=== PATIENT | female | born 2000 | race Caucasian/White ===

== ENCOUNTER → 2022-11-13 11:13 | Outpatient (BNVA) | payer MEDICAID, SELFPAY | PROVIDERS: Family Provider Registered Nurse; PCP Registered Nurse; Visit Provider Family Medicine | DX: R30.0 Dysuria (principal); Z34.90 Encounter for supervision of normal pregnancy, unspecified, unspecified trimester | CPT/HCPCS: 80307; 81025; 84144; 84443; 85025; 86762; 86803; 86850; 86900; 87086; 87340; 87491; 87591; 87624; 87806 ==

== ENCOUNTER 2022-11-21 15:11 | Outpatient (CLI) | payer MEDICAID, SELFPAY ==
--- NOTE | 2022-11-21 15:30 | US_ITS ---
WS: [id number] OB ultrasound, 11/21/2022 Clinical Data: Dating US Comparison: None. Findings: There is a single interuterine . heart rate is 164 beats per minute. There is a yolk sac present. The crown-rump length measured 1.6 cm. The estimated gestational age 8w0d is with an SAMAN of approximately 07/03/2023. The cervix was closed and measured 2.26 cm The ovary measured 9.97 x 6.98 x 5.16 cm. The left ovary measured 2.64 cm x 2.54 cm x 1.52 cm. The right ovary measured 2.25 cm x 1.630 cm x 1.28 cm. No ovarian cyst or masses are seen. US/US OB <= 14 weeks fetus [id number] Impression: 1. Single interuterine . 2. Estimated gestational age of 8w0d with an SAMAN of 07/03/2023. 3. heart rate 164 beats per minute.
== END 2022-11-21 15:12 | disposition home or self-care (01) ==
PROVIDERS: PCP Registered Nurse; Visit Provider Family Medicine
DX: Z34.00 Encounter for supervision of normal first pregnancy, unspecified trimester (principal); Z3A.08 8 weeks gestation of pregnancy
CPT/HCPCS: 76801

== ENCOUNTER 2023-02-15 14:44 | Outpatient (CLI) | payer MEDICAID, SELFPAY ==
--- NOTE | 2023-02-15 15:00 | US_ITS ---
WS: [id number] OBSTETRICAL ULTRASOUND COMPLETE HISTORY: Anatomy US COMPARISON: 11/21/2022 this examination is significantly compromised by maternal body habitus. Single intrauterine gestation in Cephalic presentation. Cervix is not imaged. Cervical length has not been evaluated. Normal amount of amniotic fluid surrounds the fetus. Placenta: Posterior. Placenta grade 1 Heart: 138 BPM. Four chambers are identified. No outflow tract is identified. Anatomy: Intracranial structures are negative. spine limited. stomach is normal. Bladder is present. Kidneys are not well visualized. Limited visualization of the abdominal wall and cord ins ertion site. Orientation of the feet with relationship to the lower extremities is not determined. 4 extremities a re noted. profile: Not visualized. Gender: Male. measurements: BPD = 4.7 cm = 20w1d; HC = 18.1 cm = 20w4d; AC = 15.0 cm = 20w2d; FL = 3.5 cm = 21w0d; EFW: 362 g. Biometry is internally concordant. AGA by ultrasound: 20w4d SAMAN by ultrasound: 07/01/2023 US/US OB >= 14 weeks fetus [id number] IMPRESSION: 1. Single intrauterine gestation of 20w4d with an SAMAN of 07/01/2023. Appropria te growth since the first trimester ultrasound. 2. Extremely limited anatomy evaluation. Recommend reevaluation of the cervix and cervical length, spine, cardiac outflow tracts, kidneys, orientation and relationship of the lower extremities to the feet and profile. The re maining anatomy appears appropriate.
== END 2023-02-15 14:45 | disposition home or self-care (01) ==
PROVIDERS: PCP Registered Nurse; Visit Provider Family Medicine
DX: Z34.02 Encounter for supervision of normal first pregnancy, second trimester (principal)
CPT/HCPCS: 76805

== ENCOUNTER 2023-03-15 13:51 | Outpatient (CLI) | payer MEDICAID, SELFPAY ==
--- NOTE | 2023-03-15 14:15 | US_ITS ---
WS: [id number] ULTRASOUND OB FOCUSED HISTORY: Follow up on anatomy US in 1-2 weeks, reevaluate heart, cervix, spine, kidneys and low er extremities, profile. COMPARISON: 02/15/2023 Single intrauterine gestation in cephalic position. Cervix is closed measuring 3.3 cm. Fetus in cepha lic position. heart rate at 147 BPM. Additional imaging the heart demonstrates 4 chambers. Normal position of the valve plane. Outfl ow tracts are normal. I was present during this examination and no abnormality was appreciated. spine is normal. Normal profile. Ankles are crossed causing difficult evaluation of the orientation between the lower extremities and feet. All 4 extremities are present. Normal kidneys. IMPRESSION: Follow-up imaging of anatomy demonstrates no persistent abnormalities. heart and outflow tracts appear normal. ankles are crossed limiting evaluation of the orientation of the lower ex tremities and feet.
== END 2023-03-15 13:52 | disposition home or self-care (01) ==
LOC: RAD 13:51
PROVIDERS: PCP Registered Nurse; Visit Provider Family Medicine
DX: Z34.00 Encounter for supervision of normal first pregnancy, unspecified trimester (principal); Z3A.00 Weeks of gestation of pregnancy not specified
CPT/HCPCS: 76815; 82950

== ENCOUNTER → 2023-04-11 12:03 | Outpatient (BNVA) | payer MEDICAID, SELFPAY | PROVIDERS: PCP Registered Nurse; Visit Provider Family Medicine | DX: Z34.00 Encounter for supervision of normal first pregnancy, unspecified trimester (principal); R25.2 Cramp and spasm; Z51.81 Encounter for therapeutic drug level monitoring | CPT/HCPCS: 83735; 84132; 85025 ==

== ENCOUNTER → 2023-06-06 14:41 | Outpatient (BNVA) | payer MEDICAID, SELFPAY | PROVIDERS: PCP Registered Nurse; Visit Provider Family Medicine | DX: Z34.00 Encounter for supervision of normal first pregnancy, unspecified trimester (principal) | CPT/HCPCS: 87081 ==

== ENCOUNTER 2023-07-04 17:55 | Inpatient (IN) | payer MEDICAID, SELFPAY ==
[2023-07-04] VITALS (13 sets, daily range): BP systolic 110–148; BP diastolic 67–88; PULSE 75–85; TEMP 35.7–36.7; BMI 40.6
[2023-07-04 19:08] LABS: Basophils % 0.3 %; Eosinophils # 0.1 10^3/uL (0.0-0.8); Eosinophils % 0.4 %; Lymphocytes % 17.2 %; Mean Corpuscular HGB Conc 33.9 g/dL (30-55); Mean Corpuscular Hemoglobin 29.5 pg (27-33); Mean Corpuscular Volume 86.8 fl (85-98); Mean Platelet Volume 11.7 fL (7.4-10.4); Monocytes # 0.8 10^3/uL (0.2-0.9); Monocytes % 6.6 %; Neutrophils # 8.67 10^3/uL (1.8-7.7); Neutrophils % 74.8 %; Nucleated Red Blood Cells % 0 %; Platelet Count 204 10^3/cmm (157-399); Red Blood Count 4.38 10^6/uL (3.85-5.65); Red Cell Distribution Width 13.2 % (12.1-15.1)
[2023-07-04] MEDS: miSOPROStol 100 mcg tablet 25 MCG VAGINAL ×2 (19:26→23:59)
--- NOTE | 2023-07-04 20:42 | P.HP_ITS ---
Providers/Chief Complaint 2 Admitting Physician: Jamar Martinez MD Primary Care Provider: LUDIN Alexander Chief Complaint: Induction History of Present Illness Basilia Oropeza is a 23 year old @ 40.1 wks by 8 wk US inconsistent with LMP. Preg c/b obesity. The patient presents to labor and delivery for a scheduled induction of labor due to postdates. The patient has been feeling well. She denies any chest pains, shortness of breath, nausea, vomiting, diarrhea, constipation, dysuria, fever, leakage of fluid, vaginal bleeding. She was closed/thick/high upon arrival. heart tones show a category 1 tracing. Medications/Allergies Home Medications Medication Instructions Recorded Confirmed Last Taken Type doxylamine succinate 25 mg tablet See Rx Instructions .Route 11/13/22 07/01/23 Unknown Rx .COMPLEX PRN allergy symptoms #30 tabs prenat.vits,yoni,lxr-fcpm-xhwev 1 tab PO DAILY #30 tabs 11/13/22 07/01/23 Unknown Rx pyridoxine (vitamin B6) 100 mg 100 mg PO BID PRN Nausea #60 tabs 11/13/22 07/01/23 Unknown Rx tablet Allergies Allergy/AdvReac Type Severity Reaction Status Date / Time No Known Allergies Allergy Verified 11/13/22 10:21 PFSH Acute 2 PFSH: Surgical History No pertinent past surgical history Social History Smoking and tobacco/nicotine status: never used tobacco/nicotine Alcohol intake: never Substance/Drug Use: never 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 Reproductive History: : 1 Vitals/I&O/Wt Last Vital Signs Temp 98.1 F 07/04/23 19:34 Pulse 85 07/04/23 20:13 BP 130/67 07/04/23 20:13 O2 Del Method Room Air 07/04/23 19:27 Weight last 48 hrs Weight 244 lb Physical Exam 2 Narrative: General: Alert and oriented x3 Eyes: Pupils equal round and reactive to light and accommodation Mouth: Mucous membranes moist, pharynx non-erythematous Cardiac: Regular rate and rhythm without murmurs Lungs: Clear to auscultation bilaterally without wheezes, crackles or rhonchi Abdomen: Soft, non-tender, fundus consistent with gestational age Extremities: Trace edema in the bilateral lower extremities Data 07/04/23 18:30 A&P Assessment and plan (1) Supervision of normal intrauterine in primigravida: The patient is doing well overall at this time. She has been given the first dose of Cytotec and we will plan to give up to 3 doses. The patient did not have any significant contractions upon arrival and they are now every 3 to 8 minutes. The patient may have a laboring epidural when she reaches 3 cm. She is GBS negative. All questions were answered. The patient and her are in agreement with current plan of care. Qualifiers: Trimester: third trimester Qualified Code(s): Z34.03 - Encounter for supervision of normal first , third trimester Attestations 2 Medical Necessity Statement*: The patient will be here for greater than 2 midnights due to routine intrapartum and management of labor and delivery. Coding Level of Care Code Acute Code for Chg Fwd Diagnoses Encounter for supervision of normal first in third trimester Z34.03 Trimester: third trimester
[2023-07-05] VITALS (80 sets, daily range): BP systolic 105–149; BP diastolic 51–97; PULSE 58–104; RESP 15–17; TEMP 35.8–37.1; O2SAT 100; BMI 40.6
[2023-07-05] MEDS: miSOPROStol 100 mcg tablet 25 MCG VAGINAL (04:08)
[2023-07-05] MEDS: dextrose 5%-lactated ringers 1,000 ML 125 ML IV ×2 (09:46→15:22)
[2023-07-05] MEDS: oxytocin 30 UNIT/500 ML BAG IV (10:10)
[2023-07-05] MEDS: acetaminophen 325 mg Tablet 650 MG PO (10:17)
[2023-07-05] MEDS: lactated ringers 1,000 ML 999 ML IV ×3 (11:36→18:06)
--- NOTE | 2023-07-05 13:51 | P.PN_ITS ---
Subjective 2 Subjective: The patient is feeling well overall today. She is feeling the contractions. She is having them every 1 to 3 minutes. heart tones are in the mid 130s with moderate variability good accelerations with a category 1 tracing. There was 1 episode of increased variability and this improved with a fluid bolus and position changes with a temporary decrease in IV Pitocin. Currently she is on 7 units of IV Pitocin. She denies any chest pains, shortness of breath, nausea or vomiting. Vitals/I&O/Wt Last Vital Signs Temp 97.2 F L 07/05/23 09:13 Pulse 97 07/05/23 13:43 Resp 17 07/05/23 09:13 BP 130/70 07/05/23 13:43 O2 Del Method Room Air 07/04/23 19:27 07/04/23 07/05/23 07/05/23 22:59 06:59 14:59 Intake Total 750 / 750 882.800 / 882.800 Balance 750 / 750 882.800 / 882.800 Weight last 48 hrs Weight 244 lb Weight 244 lb Physical Exam 2 Narrative: General: Alert and oriented x3 Cardiac: Regular rate and rhythm without murmurs Lungs: Clear to auscultation bilaterally without wheezes, crackles or rhonchi Abdomen: Soft, non-tender, fundus consistent with gestational age : Cervical exam:1/75/soft/-2/mid/vertex/bulging bag Extremities: Trace edema in the bilateral lower extremities Data 07/04/23 18:30 A&P Assessment and plan (1) Supervision of normal intrauterine in primigravida: The patient continues to do well. She received 3 doses of Cytotec overnight. She was started on IV Pitocin this morning. She did have 1 episode of increased variables that resolved with fluid bolus and position changes. Currently she has a category 1 heart tone tracing. Will continue with current management. All questions were answered. The patient and her are in agreement with current plan of care. Qualifiers: Trimester: third trimester Qualified Code(s): Z34.03 - Encounter for supervision of normal first , third trimester Attestations 2 Medical Necessity Statement*: The patient continues to need inpatient treatment and her stay will cross 2 midnights. Coding Level of Care Code Acute Code for Chg Fwd Diagnoses Encounter for supervision of normal first in third trimester Z34.03 Trimester: third trimester
[2023-07-05] MEDS: fentaNYL 50 mcg/mL INJ 2mL IVP ×2 (15:24→16:37)
[2023-07-05] MEDS: ROPivacaine syringe 100 MG/50 ML SYRINGE 10 MG EPIDURAL ×2 (18:19→21:38)
--- NOTE | 2023-07-05 18:25 | P.ANESASSM_ITS ---
Pre-Anesthetic Assessment Height/Weight: Height 1.65 m Weight 110.677 kg Temp Pulse Resp BP Pulse Ox O2 Del Method 96.4 F L 83 17 124/60 100 Room Air 07/05/23 15:29 07/05/23 18:21 07/05/23 16:37 07/05/23 18:21 07/05/23 18:18 07/04/23 19:27 Preop Diagnosis: IUP Labor Epidural Familial anesthetic complications: None Was Beta Amador taken within 24 hours: N/A Was Clonidine taken within 24 hours: N/A Social No alcohol and No tobacco Exam alert, oriented x 3, clear to auscultation bilaterally and regular rate & rhythm Airway Submandibular: within normal limits Mallampati: Class II Dentition: full History/ROS No significant history except as noted Pulmonary None reported CV/HEM None reported None reported Hepatic None reported GI Gastroesophageal Reflux Disease Metabolic None reported Musc/skel None reported Neuropsych None reported Anesthetic Plan ASA status: 2 Anesthesia: Anesthesia Evaluation and Regional (specify below) (epidural) Risk of > 500 ml blood loss (7ml/kg in children): Yes, adequate IV access and fluids planned Medications/Allergies Home Medications Medication Instructions Recorded Confirmed Last Taken Type prenat.vits,yoni,xtn-xzla-ptors 1 tab PO DAILY #30 tabs 11/13/22 07/05/23 Unknown Rx Allergies Allergy/AdvReac Type Severity Reaction Status Date / Time No Known Allergies Allergy Verified 11/13/22 10:21 Current Medications Generic Name Dose Route Start Last Admin Trade Name Freq PRN Reason Stop Dose Admin Acetaminophen 650 mg 07/04/23 18:53 07/05/23 10:17 Acetaminophen 325 Mg Tablet PO 650 mg Q6H PRN Administration Mild pain or temp > 100.4 Fentanyl 25 - 100 mcg 07/04/23 18:53 07/05/23 16:37 Fentanyl 50 Mcg/Ml Inj 2ml IVP 50 mcg Q1H PRN Administration SEVERE PAIN Dextrose/Lactated Ringer's 1,000 mls @ 125 mls/hr 07/04/23 19:00 07/05/23 16:39 Dextrose 5%-Lactated Ringers IV 0 mls/hr .Q8H RAIMUNDO Infusion Lactated Ringer's 1,000 mls @ 999 mls/hr 07/04/23 18:53 07/05/23 15:20 Lactated Ringers IV Infused .Q1H1M PRN Infusion Per L&D Rescitation Protocol Oxytocin 30 unit in 500 mls @ 1 mls/hr 07/05/23 08:45 07/05/23 14:30 Pitocin IV 11 milliunit/min .Q24H RAIMUNDO 11 mls/hr Titration Protocol 1 MILLIUNIT/MIN Lactated Ringer's 1,000 mls @ 999 mls/hr 07/05/23 16:31 07/05/23 18:06 Lactated Ringers IV 999 mls/hr .Q1H1M PRN Administration See label comments Ropivacaine 100 mg in 50 mls @ 10 mls/hr 07/05/23 16:45 07/05/23 18:19 Naropin Syringe EPIDURAL 10 mls/hr .Q5H RAIMUNDO Administration PFSH Anesthesia Surgical History No pertinent past surgical history Social History Smoking and tobacco/nicotine status: never used tobacco/nicotine Alcohol intake: never Substance/Drug Use: never 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 Reproductive History : 1 Data Anesthesia 07/04/23 18:30 Short CBC 07/04/23 Range/Units 18:30 WBC 11.60 H (3.29-11.43) 10^3/uL Hgb 12.90 (11.27-16.99) g/dL Hct 38.0 (36-47) % MCV 86.8 (85-98) fl Plt Count 204 (157-399) 10^3/cmm Neut % (Auto) 74.8 % Neut # (Auto) 8.67 H (1.8-7.7) 10^3/uL Blood Bank 07/04/23 18:30 Blood Type AB Positive Rho(D) Type Rh positive Antibody Screen Negative Cardiac Studies: 2 No Data to Display Anesthesia Procedures Date of Procedure 07/05/23 Epidural Time Out Performed: Yes Consents Signed: Procedure Consent Consent: requested by attending/covering physician, from patient and risks and benefits reviewed Lumbar Level: L4-L5 Epidural position: sitting Epidural procedure: sterile prep of area, 1% lidocaine to numb the area, 18 g needle, negative for paresthesia passed, neg for paresthesia, test dose given, 1.5% xylocaine 1:200k epi, 0.2% Ropivacaine bolus ml (5), placed PCEA, no systemic response, sterile dressing applied, L.U.D. no apparent complications and 0.2% Ropiavacaine @ mls/hr (10) Additional Comments: JAXON 7cm ,catheter easily threaded to 5cm in the space
[2023-07-05] MEDS: lactated ringers 1,000 ML 500 ML IV (21:01)
[2023-07-05] MEDS: ondansetron 2 mg/ML SDV 2 mL 4 MG IVP (21:53)
[2023-07-06] VITALS (38 sets, daily range): BP systolic 102–153; BP diastolic 53–90; PULSE 61–125; RESP 16–17; TEMP 36.4–36.7; O2SAT 98; BMI 40.6
[2023-07-06] MEDS: ROPivacaine syringe 100 MG/50 ML SYRINGE 10 MG EPIDURAL ×2 (01:35→05:49)
[2023-07-06] MEDS: dextrose 5%-lactated ringers 1,000 ML 125 ML IV (03:39)
--- NOTE | 2023-07-06 09:36 | P.PCNOB_ITS ---
Delivery Note: Date of delivery: July 06, 2023 Pre-delivery diagnoses: 1. Intrauterine at 40.3 weeks gestation 2. Obesity 3. Postdates Post-delivery diagnoses: 1. Intrauterine status post v acuum-assisted vaginal delivery at 40.3 weeks gestation 2. Obesity 3. Postdates 4. True knot in cord 5. Prolonged second stage of labor 6. Meconium stained fluid Procedure: Vacuum-assisted vaginal delivery Delivering Physician: Jamar Martinez MD Estimated blood loss (mL): 100 Findings: 1. Healthy male weighing 6 pound s 5 ounces with Apgars of 8 and 9 2. Intact placenta with central umbilic al cord insertion site 3. Narrow pelvic outlet Pre-Delivery Course: Basilia Oropeza is a 23 year old G1 now P1 status post vacuum-assisted vaginal delivery @ 40.3 wks by 8 wk US inconsistent with LMP. Preg c/b obesity. The patient presented to labor and delivery for a scheduled induction of labor due to postdates. The patient had been feeling well. She presented on the evening of 07/04/2023. She was closed upon presentation and was given Cytotec x 3 doses. The patient was then switched to IV Pitocin to augment labor. The patient continued to make slow change and was 3 cm by the evening of 07/05/2023. AROM was performed at 2004 on 07/05/2023 and a small amount of clear fluid was noted. From that point the patient began to make more steady change and was complete by 4:24 AM on 07/06/2023. The patient had been on 7 units of Pitocin and it was temporarily stopped by nursing until my arrival. Delivery: The patient began pushing at 5:20 AM on 07/06/2023. The patient pushed well. After an hour and a half of pushing, the IV Pitocin was restarted at 2 units and eventually increased to 4 units to increase the strength of the contractions again. By 2 hours of pushing, I had a discussion with the patient regarding the potential risks of either an infant that was too big for her pelvis or risks of shoulder dystocia. I felt that the patient would be able to have a vaginal delivery if allowed to go beyond 2 hours and she decided to keep going. After 2-1/2 hours, the patient had made change and the was in the +1 station. The patient was starting to wear out and it was felt that applying a vacuum would help with the maternal exhaustion. Again we discussed the benefits and risks. The vacuum was then placed and traction was placed on the vacuum well the patient pushed during each contraction. The vacuum lost suction on 2 occ asions. At that time however the 's head had descended to . For this reason the vacuum was laid aside and the patient was allowed to continue to push. She pushed well and the infant delivered in the OA position at 8:48 AM on 07/06/2023. The left shoulder was the anterior shoulder and it delivered with ease. The rest of the delivered with ease. Meconium was present upon d elivery. The 's mouth and nose were bulb suction by myself. The infant was crying immediately upon delivery. The was placed on the mother's chest where the nurses were waiting to care for him. The cord was clamped by myself after approximately 1 minute and cut by the infant's father. A true knot was noted midway in the cord. The cord was noted to be very healthy with a significant amount of whorthon's jelly and twists. There was no significant tension on the knot. Cord blood was obtained and the cord was then drained of blood. Traction was placed on umbilical cord and the placenta delivered without complication at 8:53 AM on 07/06/2023. The placenta was noted to be intact with a central umbilical cord insertion site. The cervix was inspected and no lacerations were noted. The vaginal wall was inspected and there was a second- degree tear on the maternal left lower vaginal wall that was bleeding. 1% lidocaine was placed for anesthesia and 3-0 Vicryl was placed in a running fashion to repair the laceration. The patient tolerated this well. Currently both the mother and are doing well. History History History 1 Term 0 0 Miscarriages/Ectopic 0 Living Children 0 Past Pregnancies Del. Date GA/Weeks Outcome Route Wt Inf Gender Labor Lgth Comp. Anesth esia Location 07/06/23 40 live - full term Opperative 6 lb 5 oz Male 36 hr regional [facility] Delivery Date: 07/06/23 Last Updated by: Jamar Martinez MD Vacuum-assisted vaginal delivery. Patient with narrow pelvic outlet. No shoulder dystocia. Small second-degree vaginal laceration. True knot in cord. A&P Assessment and plan (1) Vacuum-assisted vaginal delivery: Coding Level of Care Code Acute Code for Chg Fwd Diagnoses Vacuum-assisted vaginal delivery Z37.9
[2023-07-06] MEDS: benzocaine-menthol 78 gm Canister 1 SPRAY TOPICAL (12:03)
[2023-07-06] MEDS: lanolin oint 7 gm 1 APPLIC TOPICAL (12:03)
[2023-07-06] MEDS: lidocaine 2% INJ 20 mL INJECTION (12:03)
[2023-07-06] MEDS: ibuprofen 800 mg tablet PO ×2 (14:51→22:38)
[2023-07-06] MEDS: docusate sodium 100 mg Capsule PO (17:26)
[2023-07-07 01:27] VITALS: BP 132/85; PULSE 66; RESP 16; TEMP 36.4; O2SAT 99
[2023-07-07 03:48] VITALS: BP 125/79; PULSE 88; RESP 16; TEMP 36.5; O2SAT 98
[2023-07-07 05:01] LABS: Hematocrit 31.3 % (36-47); Mean Corpuscular HGB Conc 32.9 g/dL (30-55); Mean Corpuscular Hemoglobin 29.5 pg (27-33); Mean Corpuscular Volume 89.7 fl (85-98); Mean Platelet Volume 11.7 fL (7.4-10.4); Platelet Count 157 10^3/cmm (157-399); Red Blood Count 3.49 10^6/uL (3.85-5.65); White Blood Count 16.09 10^3/uL (3.29-11.43)
[2023-07-07] MEDS: oxytocin 30 UNIT/500 ML BAG 600 UNIT IV (08:53)
[2023-07-07] MEDS: docusate sodium 100 mg Capsule PO (09:11)
[2023-07-07] MEDS: ibuprofen 800 mg tablet PO (09:11)
[2023-07-07] MEDS: prenatal vitamin Capsule 1 CAP PO (09:11)
--- NOTE | 2023-07-07 09:42 | ANE.PACU2 ---
Inpatient post-anesthesia follow up: Airway intact: Yes Vital signs: Temperature 97.7 F Pulse Rate 88 Respiratory Rate 16 Blood Pressure 125/79 Pulse Oximetry 98 Oxygen Delivery Me thod Room Air Oxygen Flow Rate Fraction of Inspir ed Oxygen Hydration adequate: Yes Nausea and vomiting: No Pain level: 1 Mental status: Baseline
--- NOTE | 2023-07-07 10:09 | PM.DCS ---
Discharge Providers Date of Admission: 07/04/23 17:55 Date of Discharge: July 07, 2023 Attending Provider at Admission: Jamar Martinez MD Attending Provider at Discharge: Jamar Martinez MD Primary Care Provider: LUDIN Alexander Diagnoses at Discharge Discharge Diagnosis (1) Vacuum-assisted vaginal delivery: Status: Acute Other Information Additional DC diagnoses/information: 1. Intrauterine status post vacuum-assisted vaginal delivery at 40.3 weeks gestation 2. Obesity 3. Postdates 4. True knot in cord 5. Prolonged second stage of labor 6. Meconium stained fluid Reason for Visit Reason for Visit: Induction Brief History: Basilia Oropeza is a 23 year old G1 now P1 status post vacuum-assisted vaginal delivery @ 40.3 wks by 8 wk US inconsistent with LMP. Preg c/b obesity. The patient presented to labor and delivery for a scheduled induction of labor due to postdates. The patient had been feeling well. She presented on the evening of 07/04/2023. Hospital Course Hospital Course She was closed upon presentation and was given Cytotec x 3 doses. The patient was then switched to IV Pitocin to augment labor. The patient continued to make slow change and was 3 cm by the evening of 07/05/2023. AROM was performed at 2004 on 07/05/2023 and a small amount of clear fluid was noted. From that point the patient began to make more steady change and was complete by 4:24 AM on 07/06/2023. The patient had a prolonged second stage of labor and had a vacuum-assisted vaginal delivery with delivery at 8:48 AM on 07/06/2023. There was no shoulder dystocia. The patient had a small second-degree vaginal laceration that was repaired without complication. the patient is doing very well. Her bleeding has decreased well. She is ambulating, voiding, passing gas and tolerating food by mouth. Routine discharge instructions were discussed and all questions were answered. The patient would like to be discharged home today. She is doing well and I am in agreement. Will plan to follow-up with her at 6 weeks or sooner if needed. Physical Exam Narrative: General: Alert and oriented x3 Cardiac: Regular rate and rhythm without murmurs Lungs: Clear to auscultation bilaterally without wheezes, crackles or rhonchi Abdomen: Soft, mild tenderness over uterus. The uterus is firm and 2 cm below the umbilicus. Extremities: Trace edema in the bilateral lower extremities Urinary Catheter Management: Mascorro Latex: Cath Placed During This Visit: yes, but has since been removed by the nurse Reason for Continuing Indwelling Catheter: Decision to DC Catheter Urinary Catheter Date of Insertion: 07/05/23 Urinary Catheter Time of Insertion: 18:53 Date Urinary Catheter Removed: 07/06/23 Time Urinary Catheter Discontinued: 05:18 Discharge Data Studies Completed and Pending Laboratory Results WBC 16.09 10^3/uL (3.29-11.43) H 07/07/23 00:50 RBC 3.49 10^6/uL (3.85-5.65) L 07/07/23 00:50 Hgb 10.30 g/dL (11.27-16.99) L 07/07/23 00:50 Hct 31.3 % (36-47) L 07/07/23 00:50 MCV 89.7 fl (85-98) 07/07/23 00:50 MCH 29.5 pg (27-33) 07/07/23 00:50 MCHC 32.9 g/dL (30-55) 07/07/23 00:50 RDW 14.0 % (12.1-15.1) 07/07/23 00:50 Plt Count 157 10^3/cmm (157-399) 07/07/23 00:50 MPV 11.7 fL (7.4-10.4) H 07/07/23 00:50 Neut % (Auto) 74.8 % 07/04/23 18:30 Lymph % (Auto) 17.2 % 07/04/23 18:30 Ford % (Auto) 6.6 % 07/04/23 18:30 Eos % (Auto) 0.4 % 07/04/23 18:30 Baso % (Auto) 0.3 % 07/04/23 18:30 Neut # (Auto) 8.67 10^3/uL (1.8-7.7) H 07/04/23 18:30 Lymph # (Auto) 2.0 10^3/uL (0.8-4.8) 07/04/23 18:30 Ford # (Auto) 0.8 10^3/uL (0.2-0.9) 07/04/23 18:30 Eos # (Auto) 0.1 10^3/uL (0.0-0.8) 07/04/23 18:30 Baso # (Auto) 0.0 10^3/uL (0.0-0.1) 07/04/23 18:30 Nucleated RBC % (auto) 0 % 07/04/23 18:30 Nucleated RBCs # 0.0 /100WBC 07/04/23 18:30 Blood Type AB Positive 07/04/23 18:30 Rho(D) Type Rh positive 07/04/23 18:30 Antibody Screen Negative 07/04/23 18:30 Vitals Last Vital Signs Temp 97.7 F 07/07/23 03:48 Pulse 88 07/07/23 03:48 Resp 16 07/07/23 03:48 BP 125/79 07/07/23 03:48 Pulse Ox 98 07/07/23 03:48 O2 Del Method Room Air 07/07/23 03:48 Discharge Plan Discharge Patient Disposition: Home Condition: Good Prescriptions: New ibuprofen 800 mg Tablet 800 mg PO TID Qty: 45 0RF ferrous sulfate 325 mg (65 mg iron) tablet 325 mg PO DAILY Qty: 14 0RF Continued prenat.vits,yoni,bqa-mdte-stzel Tablet 1 tab PO DAILY Qty: 30 9RF Discharge Orders: Discharge Order (Routine); Ordered 07/07/23 Ordered By: Jamar Martinez Referrals: Jamar Martinez MD [Physician] - 6 Weeks Discharge Diet: Regular Discharge Activity: Increase activity as tolerated and Limit activity as instructed Patient Instructions: Bleeding (DC), Preeclampsia and Eclampsia After Delivery (GEN), OB Caring for Baby - [facility], OB Discharge Report, OB Food/Drug Interaction Guide, OB Home Care Instructions, OB Care at Home, Opioid Safety, OB Your Care - [facility], Depression Activity Restrictions/Additional Instructions: Nothing per vagina for 6 weeks. Showers are recommended instead of baths for the next 6 weeks. Discharge Attestations Time Spent in Discharge Care*: greater than 30 min Quality Metrics Clinical Quality Measures [ No reported AMI, CVA or VTE this stay] Coding Level of Care Code Acute Code for Chg Fwd Diagnoses Vacuum-assisted vaginal delivery Z37.9
[2023-07-07 13:27] VITALS: BP 145/84; PULSE 101; RESP 16; TEMP 36.8; O2SAT 98
== END 2023-07-07 13:15 | disposition home or self-care (01) | DRG 807 ==
PROVIDERS: Admitting Provider Family Medicine; PCP Registered Nurse; Visit Provider Family Medicine
DX: O48.0 Post-term pregnancy (principal); Z37.0 Single live birth; Z3A.40 40 weeks gestation of pregnancy; O75.81 Maternal exhaustion complicating labor and delivery; O99.214 Obesity complicating childbirth; O69.2XX0 Labor and delivery complicated by other cord entanglement, with compression, not applicable or unspecified; O77.0 Labor and delivery complicated by meconium in amniotic fluid; O63.1 Prolonged second stage (of labor); O70.1 Second degree perineal laceration during delivery
CPT/HCPCS: 36415; 51702; 59025; 59409; 85025; 85027; 86850; 86900; 96374; 96376; 99211; J2405; J2590; J2795; J3010; J7120; J7121

== ENCOUNTER → 2023-09-03 13:28 | Outpatient (BNVA) | payer MEDICAID, SELFPAY | PROVIDERS: PCP Registered Nurse; Visit Provider Family Medicine | DX: Z51.81 Encounter for therapeutic drug level monitoring (principal); R10.11 Right upper quadrant pain | CPT/HCPCS: 80053; 85025; 86141 ==

== ENCOUNTER 2023-09-06 06:59 | Outpatient (CLI) | payer MEDICAID, SELFPAY ==
--- NOTE | 2023-09-06 07:15 | US_ITS ---
WS: [id number] RIGHT UPPER QUADRANT ULTRASOUND HISTORY: RUQ pain COMPARISON: None available. Liver: 14.8 cm in length. Normal size liver and echogenicity. No bile duct dilatation or mass. Portal Vein: Normal hepatopetal flow with monophasic waveform. Gallbladder: Normally distended gallbladder. There is mild wall thickening measuring up to 5 mm with stones. Very small layering stones in the gallbladder. CBD: 0.6 cm Pancreas: Head and tail are poorly visualized. Right kidney: 9.7 cm in length. Normal size and echogenicity. No hydronephrosis or mass. Aorta and IVC: Unremarkable abdominal aorta and IVC. No ascites. IMPRESSION: 1. Cholelithiasis. No evidence for acute cholecystitis or bile duct dilatation. There are numerous s tones in the gallbladder. 2. Normal liver.
== END 2023-09-06 07:00 | disposition home or self-care (01) ==
LOC: RAD 06:59
PROVIDERS: PCP Registered Nurse; Visit Provider Family Medicine
DX: K80.20 Calculus of gallbladder without cholecystitis without obstruction (principal); R10.11 Right upper quadrant pain
CPT/HCPCS: 76705

== ENCOUNTER 2023-09-20 21:10 | Emergency (ER) | payer MEDICAID, SELFPAY ==
[2023-09-20 21:12] VITALS: BP 152/81; PULSE 83; RESP 22; TEMP 36.6; O2SAT 96; BMI 35.7
--- NOTE | 2023-09-20 21:33 | CTR_ITS ---
PROCEDURE INFORMATION: Exam: CT Abdomen And Pelvis With Contrast Exam date and time: 09/20/2023 9:55 PM Age: 23 years old Clinical indication: Localized; Patient HX: Upper abdominal pain that sometimes favors the right side, patient notices pain mostly after she eats. Pain has been on and off for a year. ; Additional info: Ruq abdominal pain with h/o gallstones TECHNIQUE: Imaging protocol: Computed tomography of the abdomen and pelvis with contrast. Radiation optimization: All CT scans at this facility use at least one of these dose optimization techniques: automated exposure control; mA and/or kV adjustment per patient size (includes targeted exams where dose is matched to clinical indication); or iterative reconstruction. Contrast material: OMNI 350; Contrast volume: 100 ml; Contrast route: INTRAVENOUS (IV); COMPARISON: US gall bladder [id number] 09/06/2023 7:30 AM RADIATION DOSE METRICS: Total DLP (mGy-cm): 983.14 FINDINGS: Lungs: The lung bases are clear. Heart: Heart size is within normal limits. There is no pericardial effusion or pericardial thickening. Liver: The liver is normal. No hepatic masses are identified. Gallbladder and bile ducts: The gallbladder is normal. There is no ductal dilatation. Pancreas: The pancreas is normal. Spleen: The spleen is borderline enlarged measuring up to 13 cm in length. The spleen is otherwise unremarkable. Adrenal glands: The adrenal glands are normal. Kidneys and ureters: There is normal enhancement of the kidneys. No renal calcifications are identified. There is no hydronephrosis. Questionable subcentimeter peripelvic cysts bilaterally which do not require additional follow-up. Stomach and bowel: There is no large or small bowel obstruction. There is no evidence of bowel wall thickening. Appendix: A normal appendix is identified. Intraperitoneal space: No inflammatory changes are identified. There is no free fluid or fluid collection seen. There is no pneumoperitoneum. Vasculature: The aorta is normal in course and caliber. No significant atherosclerotic calcifications are present. Lymph nodes: There are no enlarged retroperitoneal or mesenteric lymph nodes. Urinary bladder: The bladder is unremarkable. Reproductive: The uterus is present. Physiologic follicles are in the left ovary. Bones/joints: No acute osseous abnormalities are seen. Soft tissues: The soft tissues are within normal limits. CT/CT abdomen pelvis w con* [id number] IMPRESSION: 1. No acute intra-abdominal or pelvic process. 2. Borderline splenomegaly. COMMENTS: Consistent with the [employer]'s Incidental Findings Committee white paper (J Am Alejandrina Radiol 2018): Any incidental renal lesion less than 1 cm or classified as too small to characterize, or any incidental cystic renal lesion characterized as simple-appearing, is likely benign. No follow-up imaging is recommended for these lesions per consensus recommendations based on imaging criteria.
[2023-09-20] MEDS: ondansetron 2 mg/ML SDV 2 mL 4 MG IVP (21:46)
[2023-09-20] MEDS: sodium chloride 0.9% 500 ML IV (21:47)
[2023-09-20 21:49] LABS: Basophils % 0.4 %; Eosinophils # 0.2 10^3/uL (0.0-0.8); Eosinophils % 2.7 %; Hematocrit 39.7 % (36-47); Lymphocytes # 2.8 10^3/uL (0.8-4.8); Lymphocytes % 30.9 %; Mean Corpuscular Hemoglobin 28.4 pg (27-33); Mean Corpuscular Volume 86.1 fl (85-98); Mean Platelet Volume 10.5 fL (7.4-10.4); Monocytes # 0.5 10^3/uL (0.2-0.9); Monocytes % 5.9 %; Neutrophils # 5.32 10^3/uL (1.8-7.7); Neutrophils % 59.8 %; Nucleated Red Blood Cells % 0 %; Platelet Count 238 10^3/cmm (157-399); Red Blood Count 4.61 10^6/uL (3.85-5.65); Red Cell Distribution Width 13.2 % (12.1-15.1); White Blood Count 8.91 10^3/uL (3.29-11.43)
[2023-09-20] MEDS: iohexol 350 mg/mL 500 mL Btl (per mL) IV (21:59)
[2023-09-20 22:08] LABS: Alanine Aminotransferase 33 U/L (0-33); Albumin Level 4.1 g/dL (3.5-5.2); Alkaline Phosphatase 87 U/L (35-105); Anion Gap 14.1 (5-19); Aspartate Amino Transferase 26 U/L (0-32); Blood Urea Nitrogen 10 mg/dL (6-20); C Reactive Protein 4.4 mg/L (0.0-4.9); Carbon Dioxide 26 mmol/L (22-29); Chloride 101 mmol/L (98-107); Creatinine Clr Calc Pharmacy 171.4137; Globulin 3.2 g/dL (1.3-4.6); Glomerular Filtration Rate 126.2 mL/min (90-130); Glucose 97 mg/dL (65-115); Lipase 32 U/L (13-60); Osmolality Calculated 285 mOsm/kg (285-295); Potassium 3.1 mmol/L (3.5-5.1); Sodium 138 mmol/L (136-145); Total Bilirubin 0.2 mg/dL (0.15-1.2); Total Protein 7.3 g/dL (6.6-8.7)
[2023-09-20 22:33] LABS: Add Urine Microscopic? NO; Charge for UA Resulting for Rev
--- NOTE | 2023-09-20 22:41 | ED_ITS ---
HPI - Abdominal Pain 2 General: Chief Complaint: Abdominal Pain Stated Complaint: abdomen pain Time Seen by Provider: 09/20/23 21:22 History of Present Illness: 23-year-old female presents emergency de partment with her friend chief complaint of having right upper quadrant abdominal pain after eating they happen about half an hour just prior to arrival patient endorses a prior history of gallstones as well as gallbladder disease she endorses moderate nausea with the pain as noted be sharp in nature last about half an hour patient reports no fevers or chills or any diarrhea or stool changes patient presents to the ER for further assessment and management. Associated Symptoms: Reports nausea and vomiting; Denies chills and fever(s) Review of Systems 2 General: Reports: 10 or more systems reviewed and unremarkable except in HPI and below Const: Denies: fever(s), chills, fatigue or malaise Eyes: Denies: change in vision or blurry vision Card: Denies: chest pain or palpitations Resp: Denies: dyspnea or productive cough GI: Reports: abdominal pain, nausea and vomiting : Denies: flank pain Musc: Denies: extremity pain or extremity swelling Skin/Breast: Denies: rash or pruritus Neuro: Denies: headache(s) Psych: Denies: anxiety or depression Jasper/Lymph: Denies: easy bleeding All/Imm: Denies: urticaria, throat swelling or facial swelling PFSH ED 2 PFSH: Medical History Vacuum-assisted vaginal delivery Surgical History No pertinent past surgical history Social History Smoking and tobacco/nicotine status: never used tobacco/nicotine Alcohol intake: never Substance/Drug Use: never Current occupation: Stay at home Physical Exam 2 Const: COMMON NORMALS: no acute distress, patient oriented x3 and healthy appearing HENMT: COMMON NORMALS: normocephalic and atraumatic HEAD & SCALP: n ormocephalic and atraumatic Eye: COMMON NORMALS: Equal, round and reactive pupils present and EOMs intact bilaterally PUPIL: Yes Equal, round and reactive pupils present Neck/C-Spine: COMMON NORMALS: full ROM, supple and no JVD Lymph: LYMPHATIC: no lymphadenopathy noted Chest: COMMONS NORMALS: normal inspection of the chest and normal palpation of entire chest wall Resp: COMMON NORMALS: normal respiratory effort, No retractions and clear to auscultation bilaterally EFFORT & INSPECTION: Yes able to speak in complete sentences and Yes symmetric chest movement AUSCULTATION: clear to auscultation bilaterally Cardio: COMMON NORMALS: no JVD, regular rate and regular rhythm RATE: r egular rate RHYTHM: regular rhythm GI: COMMON NORMALS: Soft to palpation and non-tender; negative for Normal to inspection, nondistended, normoactive bowel sounds present (Mild right upper quadrant abdominal pain noted to palpation otherwise soft ) INSPECTION: Yes normal to inspection PALPATION: Yes Soft to palpation : COMMON NORMALS: Yes no CVA tenderness BLADDER/KIDNEY EXAM: Yes no CVA tenderness Back/Pelvis: COMMON NORMALS: no CVA tenderness Extremity: COMMON NORMALS: normal to inspection and full ROM Neuro: COMMON NORMALS: patient oriented x3, CN's II-XII intact bilaterally, moves all extremities and no focal motor deficits Psych: COMMON NORMALS: mental status grossly normal, Normal thought process present, cooperative and normal affect THOUGHT PROCESS: Normal thought process present Skin: COMMON NORMALS: no rashes or lesions noted GENERAL SKIN EXAM: no rashes or lesions noted Course 2 Vital Signs: Vital signs: Vital Signs Temperature 97.9 F 09/20/23 21:12 Pulse Rate 83 09/20/23 21:12 Respiratory Rate 22 H 09/20/23 21:12 Blood Pressure 152/81 09/20/23 21:12 Pulse Oximetry 96 09/20/23 21:12 Oxygen Delivery Me thod Room Air 09/20/23 21:12 MDM - Abdominal Pain Medical Decision Making Due to patient's symptoms and condition lab work and imaging will be obtained we will continue to follow both CT imaging of the abdomen as well as ultrasound will be obtained lab work is come back unremarkable as well as a CTA we will continue to follow with the ultrasound patient was provided Toradol and Zofran for symptoms as well as IV fluids this patient was signed out to my colleague Dr. Kitchen at 2300. Anticipate discharge home pending ultrasound imaging. Lab Data 09/20/23 21:45 09/20/23 21:45 Labs/Radiology: Radiology Impressions Abdomen/Pelvis CT 09/20/23 21:33 IMPRESSION: 1. No acute intra-abdominal or pelvic process. 2. Borderline splenomegaly. COMMENTS: Consistent with the [employer]'s Incidental Findings Committee white paper (J Am Alejandrina Radiol 2018): Any incidental renal lesion less than 1 cm or classified as too small to characterize, or any incidental cystic renal lesion characterized as simple-appearing, is likely benign. No follow-up imaging is recommended for these lesions per consensus recommendations based on imaging criteria. Laboratory Results WBC 8.91 10^3/uL (3.29-11.43) 09/20/23 21:45 RBC 4.61 10^6/uL (3.85-5.65) 09/20/23 21:45 Hgb 13.10 g/dL (11.27-16.99) 09/20/23 21:45 Hct 39.7 % (36-47) 09/20/23 21:45 MCV 86.1 fl (85-98) 09/20/23 21:45 MCH 28.4 pg (27-33) 09/20/23 21:45 MCHC 33.0 g/dL (30-55) 09/20/23 21:45 RDW 13.2 % (12.1-15.1) 09/20/23 21:45 Plt Count 238 10^3/cmm (157-399) 09/20/23 21:45 MPV 10.5 fL (7.4-10.4) H 09/20/23 21:45 Neut % (Auto) 59.8 % 09/20/23 21:45 Lymph % (Auto) 30.9 % 09/20/23 21:45 Mckean % (Auto) 5.9 % 09/20/23 21:45 Eos % (Auto) 2.7 % 09/20/23 21:45 Baso % (Auto) 0.4 % 09/20/23 21:45 Neut # (Auto) 5.32 10^3/uL (1.8-7.7) 09/20/23 21:45 Lymph # (Auto) 2.8 10^3/uL (0.8-4.8) 09/20/23 21:45 Mckean # (Auto) 0.5 10^3/uL (0.2-0.9) 09/20/23 21:45 Eos # (Auto) 0.2 10^3/uL (0.0-0.8) 09/20/23 21:45 Baso # (Auto) 0.0 10^3/uL (0.0-0.1) 09/20/23 21:45 Nucleated RBC % (auto) 0 % 09/20/23 21:45 Nucleated RBCs # 0.0 /100WBC 09/20/23 21:45 Sodium 138 mmol/L (136-145) 09/20/23 21:45 Potassium 3.1 mmol/L (3.5-5.1) L 09/20/23 21:45 Chloride 101 mmol/L (98-107) 09/20/23 21:45 Carbon Dioxide 26 mmol/L (22-29) 09/20/23 21:45 Anion Gap 14.1 (5-19) 09/20/23 21:45 BUN 10 mg/dL (6-20) 09/20/23 21:45 Creatinine 0.6 mg/dL (0.5-0.9) 09/20/23 21:45 GFR Calculation 126.2 mL/min (90-130) 09/20/23 21:45 Glucose 97 mg/dL (65-115) 09/20/23 21:45 Calculated Osmolality 285 mOsm/kg (285-295) 09/20/23 21:45 Calcium 9.0 mg/dL (8.5-10.5) 09/20/23 21:45 Total Bilirubin 0.2 mg/dL (0.15-1.2) 09/20/23 21:45 AST 26 U/L (0-32) 09/20/23 21:45 ALT 33 U/L (0-33) 09/20/23 21:45 Alkaline Phosphatase 87 U/L (35-105) 09/20/23 21:45 C-Reactive Protein 4.4 mg/L (0.0-4.9) 09/20/23 21:45 Total Protein 7.3 g/dL (6.6-8.7) 09/20/23 21:45 Albumin 4.1 g/dL (3.5-5.2) 09/20/23 21:45 Globulin 3.2 g/dL (1.3-4.6) 09/20/23 21:45 Lipase 32 U/L (13-60) 09/20/23 21:45 Urine Color Colorless (Yellow) 09/20/23 22:25 Urine Appearance Clear (CLEAR) 09/20/23 22:25 Urine pH 8 (5-7) H 09/20/23 22:25 Ur Specific [place] 1.010 (1.005-1.030) 09/20/23 22:25 Urine Protein Neg (Negative) 09/20/23 22:25 Urine Glucose (UA) Norm (Normal) 09/20/23 22:25 Urine Ketones Negative (Negative) 09/20/23 22:25 Urine Blood Neg (Negative) 09/20/23 22:25 Urine Nitrate Negative (Negative) 09/20/23 22:25 Urine Bilirubin Neg (Negative) 09/20/23 22:25 Prot Sulfosalicylic Acd Negative (Negative) 09/20/23 22:25 Urine Urobilinogen Norm mg/dL (Negative) 09/20/23 22:25 Ur Leukocyte Esterase Negative (Negative) 09/20/23 22:25 All radiology interpretation(s) finalized by discharge Discharge Plan Discharge Patient Disposition: Home Clinical Impression: Gallbladder disease, Intermittent right upper quadrant abdominal pain Condition: Stable Prescriptions: New ketorolac 10 mg tablet 10 mg PO Q8H PRN (Reason: pain) 3 Days Qty: 14 0RF ondansetron 4 mg tablet,disintegrating 4 mg PO Q8H PRN (Reason: nausea and vomiting) Qty: 20 0RF No Action prenat.vits,yoni,xki-rrrx-pprin Tablet 1 tab PO DAILY Qty: 30 9RF ibuprofen 800 mg Tablet 800 mg PO TID Qty: 45 0RF ferrous sulfate 325 mg (65 mg iron) tablet 325 mg PO DAILY Qty: 14 0RF Discharge Orders: Discharge ED (Routine); Ordered 09/20/23 Ordered By: Quinn Mohamud Referrals: Jamar Martinez MD [Primary Care Provider] - 1-3 days Discharge Diet: Low Fat Discharge Activity: Increase activity as tolerated Patient Instructions: Abdominal Pain - Adult, Biliary Colic (ED), Abdominal Pain (ED), Pain Management Coding Level of Care Code ED Construction Code Administrator for Basiliog Yue
[2023-09-20 22:50] LABS: Bilirubin Urine Neg (Negative); Blood Urine Neg (Negative); Glucose Urine UA Norm (Normal); Ketones Urine Negative (Negative); Leukocyte Esterase Urine Negative (Negative); Nitrate Urine Negative (Negative); Protein Urine Neg (Negative); Sulfosalicylic Acid Urine Negative (Negative); Urine Appearance Clear (CLEAR); Urine Color Colorless (Yellow); Urobilinogen Urine Norm (Negative); pH Urine 8 (5-7)
== END 2023-09-20 23:06 | disposition home or self-care (01) ==
PROVIDERS: Emergency Provider Emergency Medicine; PCP Family Medicine
DX: K82.9 Disease of gallbladder, unspecified (principal); R10.11 Right upper quadrant pain
CPT/HCPCS: 74177; 80053; 81003; 83690; 85025; 86140; 96374; 99285; J2405; J7040; Q9967

== ENCOUNTER → 2024-01-16 11:01 | Outpatient (BNVA) | payer MEDICAID, SELFPAY | PROVIDERS: PCP Family Medicine; Visit Provider Family Medicine | DX: R30.0 Dysuria (principal); Z34.90 Encounter for supervision of normal pregnancy, unspecified, unspecified trimester | CPT/HCPCS: 80307; 81000; 81025; 84144; 84443; 84702; 85025; 86592; 86762; 86803; 86850; 86900; 87086; 87340; 87491; 87591; 87624; 87806 ==

== ENCOUNTER 2024-02-14 11:17 | Outpatient (CLI) | payer MEDICAID, SELFPAY ==
--- NOTE | 2024-02-14 11:30 | US_ITS ---
WS: [id number] EARLY OBSTETRICAL ULTRASOUND (<14 WEEKS). HISTORY: Dating US - Next 1-2 weeks COMPARISON: None available. Only transabdominal imaging submitted. Single intrauterine gestational sac is identified. Cardiac activity at 153 BPM. [place]-rump length maddy sures 3.2 cm which corresponds to a gestation of 10w1d. Normal-appearing yolk sac and amnion demonstr ated. No subchorionic hemorrhage. No free fluid. Normal size ovaries with no mass. US/US OB <= 14 weeks fetus [id number] IMPRESSION: 1. Single intrauterine gestation of 10w1d with an EDC of 09/10/2024. 2. Normal cardiac activity. 3. Only transabdominal imaging submitted.
== END 2024-02-14 11:18 | disposition home or self-care (01) ==
LOC: RAD 11:17
PROVIDERS: PCP Family Medicine; Visit Provider Family Medicine
DX: Z34.80 Encounter for supervision of other normal pregnancy, unspecified trimester (principal)
CPT/HCPCS: 76801

== ENCOUNTER 2024-04-10 13:21 | Outpatient (CLI) | payer MEDICAID, SELFPAY ==
--- NOTE | 2024-04-10 13:30 | USR_ITS ---
PROCEDURE INFORMATION: Exam: US After First Trimester, Transabdominal Exam date and time: 04/10/2024 1:32 PM Age: 23 years old Clinical indication: Screening exam; Routine US, uterus; Additional info: Anatomy US - about 6 weeks from now LABS AND CLINICAL REPORTS: Gestational age (Established): 18 w 1 d Estimated due date (Established): 09/10/2024 TECHNIQUE: Imaging protocol: Real-time transabdominal obstetrical ultrasound of the maternal pelvis and a second or third trimester with image documentation. COMPARISON: US OB <= 14 weeks fetus [id number] 02/14/2024 11:30 AM FINDINGS: Gestation: Single live intrauterine gestation. heart rate: 144 bpm. presentation and position: Cephalic. Placenta: Unremarkable. No subchorionic bleed. Placenta is anterior. Amniotic fluid (Qualitative): Amniotic fluid is normal for gestational age. ANATOMY: midline falx: Normal cerebellum: Normal lateral ventricles: Normal cisterna magna: Normal choroid plexus: Normal face: No well-visualized heart four-chamber view, heart size and position: Not well-visualized heart right ventricular outflow tract: Not well visualized heart left ventricular outflow tract: Not well visualized kidneys: No well-visualized stomach: Normal urinary bladder: Normal spine: Normal Umbilical cord and insertion: Normal. Normal 3 vessel cord upper limbs: Normal lower limbs: Normal BIOMETRY: Gestational age (AUA): 18 weeks 1 day Estimated due date (AUA): 09/10/2024 Estimated weight: 232.07 g. EFW by AC, BPD, FL, HC, [place]lock 1985, 53% Biparietal diameter (BPD): 3.91 cm. EGA (BPD) is 17 w 6 d. 38.9 % percentile Head circumference (HC): 15.05 cm. EGA (HC) is 18 w 1 d. 40.1 % percentile Abdominal circumference (AC): 12.91 cm. EGA (AC) is 18 w 3 d. 58.4 % percentile Femur length (FL): 2.67 cm. EGA (FL) is 18 w 1 d. 43.7 % percentile HC/AC: 1.17. (Normal range: 1.08 - 1.27) FL/HC: 17.74. (Normal range: 15.84 - 18.04) FL/BPD: 68.29 FL/AC: 20.68 MATERNAL: Uterus: Unremarkable. Cervix: Cervical length measures 5.1 cm. Right ovary/adnexa: Obscured by lack of adequate acoustic window. Left ovary/adnexa: Obscured by lack of adequate acoustic window. Intraperitoneal space: No intraperitoneal free fluid. US/US OB >= 14 weeks fetus [id number] IMPRESSION: Single live intrauterine gestation with estimated age of 18 weeks 1 day, and weight of 232.07 g.
== END 2024-04-10 13:22 | disposition home or self-care (01) ==
LOC: RAD 13:21
PROVIDERS: PCP Family Medicine; Visit Provider Family Medicine
DX: Z34.80 Encounter for supervision of other normal pregnancy, unspecified trimester (principal)
CPT/HCPCS: 76805

== ENCOUNTER → 2024-04-13 14:27 | Outpatient (BNVA) | payer MEDICAID, SELFPAY | PROVIDERS: PCP Family Medicine; Visit Provider Family Medicine | DX: Z34.80 Encounter for supervision of other normal pregnancy, unspecified trimester (principal) | CPT/HCPCS: 81511 ==

== ENCOUNTER 2024-05-12 14:47 | Outpatient (CLI) | payer MEDICAID, SELFPAY ==
--- NOTE | 2024-05-12 14:45 | USR_ITS ---
PROCEDURE INFORMATION: Exam: US , Limited Exam date and time: 05/12/2024 3:06 PM Age: 23 years old Clinical indication: Screening exam; Routine US, uterus; Additional info: Follow up US for heart, kidneys, profile - 4-6 wks, 4 to 6 weeks from now TECHNIQUE: Imaging protocol: Real-time ultrasound of the maternal uterus with image documentation. Exam focused on the clinical indication. COMPARISON: US OB >= 14 weeks fetus [id number] 04/10/2024 1:32 PM FINDINGS: Gestation: Single live intrauterine gestation. heart rate: 141 bpm. presentation and position: Breech. Placenta: Anterior. ANATOMY: face: Profile view not well-visualized heart four-chamber view, heart size and position: Normal heart right ventricular outflow tract: Normal heart left ventricular outflow tract: Normal kidneys: Normal MATERNAL: Cervix: Unremarkable closed cervix measuring 4.6 cm in length. US/US OB limited [id number] IMPRESSION: Single live intrauterine gestation.
== END 2024-05-12 14:48 | disposition home or self-care (01) ==
LOC: RAD 14:48
PROVIDERS: PCP Family Medicine; Visit Provider Family Medicine
DX: Z34.82 Encounter for supervision of other normal pregnancy, second trimester (principal)
CPT/HCPCS: 76815

== ENCOUNTER → 2024-06-10 10:51 | Outpatient (BNVA) | payer MEDICAID, SELFPAY | PROVIDERS: PCP Family Medicine; Visit Provider Family Medicine | DX: Z34.92 Encounter for supervision of normal pregnancy, unspecified, second trimester (principal) | CPT/HCPCS: 82950 ==

== ENCOUNTER → 2024-07-23 10:47 | Outpatient (BNVA) | payer MEDICAID, SELFPAY | PROVIDERS: PCP Family Medicine; Visit Provider Family Medicine | DX: Z51.81 Encounter for therapeutic drug level monitoring (principal); Z34.80 Encounter for supervision of other normal pregnancy, unspecified trimester | CPT/HCPCS: 85025 ==

== ENCOUNTER → 2024-08-13 10:36 | Outpatient (BNVA) | payer SELFPAY | PROVIDERS: PCP Family Medicine; Visit Provider Family Medicine | DX: Z34.80 Encounter for supervision of other normal pregnancy, unspecified trimester (principal) | CPT/HCPCS: 87081 ==

== ENCOUNTER 2024-08-17 16:28 | Outpatient (CLI) | payer SELFPAY ==
[2024-08-17 16:31] VITALS: BMI 38.7
[2024-08-17 16:40] VITALS: BP 131/71; PULSE 86
[2024-08-17 16:41] VITALS: RESP 15
[2024-08-17 17:10] LABS: Nitrazine Paper, PH Negative
[2024-08-17 17:18] LABS: Actim Prom Negative
[2024-08-17 17:29] VITALS: BP 131/71; PULSE 86; RESP 15
== END 2024-08-17 17:30 | disposition home or self-care (01) ==
LOC: OPOB 16:29 → OBGYN 17:20
PROVIDERS: PCP Family Medicine; Visit Provider Family Medicine
DX: O26.899 Other specified pregnancy related conditions, unspecified trimester (principal); Z3A.00 Weeks of gestation of pregnancy not specified; R10.9 Unspecified abdominal pain; N89.8 Other specified noninflammatory disorders of vagina
CPT/HCPCS: 59025; 83986; 84112; 99211

== ENCOUNTER 2024-09-03 18:09 | Inpatient (IN) | payer MEDICAID, SELFPAY ==
[2024-09-03] VITALS (13 sets, daily range): BP systolic 117–140; BP diastolic 65–78; PULSE 67–88; RESP 15; BMI 38.6
--- NOTE | 2024-09-03 18:24 | P.HP_ITS ---
Providers/Chief Complaint 2 Admitting Physician: Jamar Martinez MD Primary Care Provider: Jamar Martinez MD Chief Complaint: IOL History of Present Illness Basilia Oropeza is a 24 year old @ 39.0 wks by LMP c/w 10 wk US. Preg c/b h/o vacuum assisted vaginal delivery for prolonged 2nd stage of labor, obesity. The patient presents to labor and delivery for a scheduled induction of labor. She is being induced due to history of a prolonged second stage of labor with need for a vacuum-assisted vaginal delivery. The goal for delivery at 39 weeks is to decrease risk for complications related to a smaller pelvic outlet. The patient's cervix was 1.5 cm dilated and 50% effaced upon admission. The patient is feeling well today. She denies any vaginal bleeding, leakage of fluid, fevers, chest pain, shortness of breath, nausea, vomiting, diarrhea, constipation, dysuria. Medications/Allergies Home Medications ?Medication ?Instructions ?Recorded ?Confirmed ?Last Taken ?Type No Known Home Medications 09/04/2408/22 Unknown History Allergies Allergy/AdvReac Type Severity Reaction Status Date / Time No Known Allergies Allergy Verified 02/13/24 12:08 PFSH Acute 2 PFSH: Medical History Vacuum-assisted vaginal delivery Surgical History No pertinent past surgical history Social History Smoking and tobacco/nicotine status: never used tobacco/nicotine Alcohol intake: never Substance/Drug Use: never Current occupation: Stay at home Physical Exam 2 Narrative: General: Alert and oriented x3 Eyes: Pupils equal round and reactive to light and accommodation Mouth: Mucous membranes moist, pharynx non-erythematous Cardiac: Regular rate and rhythm without murmurs Lungs: Clear to auscultation bilaterally without wheezes, crackles or rhonchi Abdomen: Soft, non-tender, fundus consistent with gestational age Extremities: Trace edema in the bilateral lower extremities Data 09/03/24 18:30 A&P Assessment and plan (1) Supervision of normal intrauterine in multigravida: We will plan to start the patient with Cytotec due to patient's may score being less than 5. The patient may receive a laboring epidural once she gets to 3 cm or beyond. The patient is GBS negative. The patient and her are in agreement with the current plan of care. All questions were answered. PDMP PDMP Reviewed: Not Reviewed Attestations 2 Medical Necessity Statement*: The patient will be here for greater than 2 midnights due to routine intrapartum and management of labor delivery. Coding Level of Care Code Acute Code for Chg Fwd Diagnoses Supervision of normal intrauterine in multigravida Z34.80
[2024-09-03 18:51] LABS: Basophils % 0.2 %; Eosinophils # 0.1 10^3/uL (0.0-0.8); Eosinophils % 0.9 %; Hematocrit 36.2 % (36-47); Lymphocytes # 2.1 10^3/uL (0.8-4.8); Lymphocytes % 22.3 %; Mean Corpuscular HGB Conc 33.4 g/dL (30-55); Mean Corpuscular Hemoglobin 28.5 pg (27-33); Mean Corpuscular Volume 85.4 fl (85-98); Mean Platelet Volume 11.1 fL (7.4-10.4); Monocytes # 0.7 10^3/uL (0.2-0.9); Monocytes % 7.6 %; Neutrophils # 6.46 10^3/uL (1.8-7.7); Neutrophils % 68.7 %; Nucleated Red Blood Cells % 0 %; Platelet Count 199 10^3/cmm (157-399); Red Blood Count 4.24 10^6/uL (3.85-5.65); Red Cell Distribution Width 14.1 % (12.1-15.1)
[2024-09-03] MEDS: miSOPROStol 100 mcg tablet 25 MCG VAGINAL (19:07)
[2024-09-04] VITALS (69 sets, daily range): BP systolic 100–148; BP diastolic 55–97; PULSE 61–115; RESP 16–17; TEMP 35.6–36.8; O2SAT 90–100; BMI 38.6
[2024-09-04] MEDS: lactated ringers 1,000 ML 999 ML IV (00:27)
--- NOTE | 2024-09-04 01:21 | P.ANESASSM_ITS ---
Pre-Anesthetic Assessment Height/Weight: Height 1.65 m Weight 105.233 kg Pulse Resp BP O2 Del Method 83 15 139/65 Room Air 09/04/24 01:18 09/03/24 18:45 09/04/24 01:18 09/03/24 18:37 Preop Diagnosis: IUP Labor Epidural Familial anesthetic complications: none Was Beta Amador taken within 24 hours: N/A Was Clonidine taken within 24 hours: N/A Last intake: Meal 09/03/24 1800 clears - currently Social No alcohol and No tobacco Exam alert, oriented x 3, clear to auscultation bilaterally and regular rate & rhythm Airway Submandibular: within normal limits Cervical ROM: within normal limits Mallampati: Class II Dentition: full History/ROS No significant history except as noted GI Gastroesophageal Reflux Disease Anesthetic Plan ASA status: 2 Anesthesia: Eval. for regional block Other: Labor Epidural Labs reviewed and acceptable. Medications/Allergies Allergies Allergy/AdvReac Type Severity Reaction Status Date / Time No Known Allergies Allergy Verified 02/13/24 12:08 Current Medications Generic Name Dose Route Start Last Admin Trade Name Freq PRN Reason Stop Dose Admin Lactated Ringer's 1,000 mls @ 999 mls/hr 09/03/24 23:30 09/04/24 00:27 Lactated Ringers IV 999 mls/hr .Q1H1M PRN Administration See label comments [facility] Anesthesia Medical History Vacuum-assisted vaginal delivery Surgical History No pertinent past surgical history Social History Smoking and tobacco/nicotine status: never used tobacco/nicotine Alcohol intake: never Substance/Drug Use: never 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 Reproductive History : 2 Data Anesthesia 09/03/24 18:30 Short CBC 09/03/24 Range/Units 18:30 WBC 9.40 (3.29-11.43) 10^3/uL Hgb 12.10 (11.27-16.99) g/dL Hct 36.2 (36-47) % MCV 85.4 (85-98) fl Plt Count 199 (157-399) 10^3/cmm Neut % (Auto) 68.7 % Neut # (Auto) 6.46 (1.8-7.7) 10^3/uL Blood Bank 09/03/24 18:30 Blood Type AB Positive Rho(D) Type Rh positive Antibody Screen Negative Cardiac Studies: 2 No Data to Display
[2024-09-04] MEDS: dextrose 5%-lactated ringers 1,000 ML 125 ML IV ×2 (01:26→09:28)
[2024-09-04] MEDS: ROPivacaine syringe 100 MG/50 ML SYRINGE 10 MG EPIDURAL ×5 (01:59→12:00)
--- NOTE | 2024-09-04 02:02 | P.ANES_ITS ---
Anesthesia Procedures Procedure/Date: 09/04/24 Epidural: Time Out Performed: Yes Consents Signed: Procedure Consent Consent: requested by attending/covering physician, from patient, risks and benefits reviewed and patient agrees to proceed Lumbar Level: L4-L5 Epidural position: sitting Epidural procedure: sterile prep of area, 1% lidocaine to numb the area, negative for paresthesia passed, test dose given, 1.5% xylocaine 1:200k epi (5 ml), 0.2% Ropivacaine bolus ml (5 ml), placed PCEA (10 ml /hr), no systemic response, sterile dressing applied and L.U.D. no apparent complications Additional Comments: JAXON at 6cm catheter threaded to 12cm with ease -heme -csf. Patient connected to BULLARD MACHINE OPERATOR and positioned supine with JING, educated on button use with BULLARD MACHINE OPERATOR VSS.
[2024-09-04] MEDS: oxytocin 30 UNIT/500 ML BAG IV (02:35)
[2024-09-04] MEDS: ondansetron 2 mg/ML SDV 2 mL 4 MG IVP ×2 (07:13→13:18)
--- NOTE | 2024-09-04 14:43 | PM.DELIVERY ---
Delivery Note: Date of delivery: September 04, 2024 Pre-delivery diagnoses: 1. Intrauterine at 39.1 weeks gestation 2. History of vacuum-assisted vaginal delivery 3. History of prolonged second stage of labor 4. Obesity Post-delivery diagnoses: 1. Intrauterine status post spontaneous vaginal delivery at 39.1 weeks gestation 2. History of vacuum-assisted vaginal delivery 3. History of prolonged second stage of labor 4. Obesity 5. Delivery of healthy infant female weighing 6 pounds 4 ounces with Apgars of 8 and 9 Procedure: Spontaneous vaginal delivery Delivering Physician: Jamar Martinez MD Estimated blood loss (mL): 100 Findings: 1. Delivery of healthy female weighing 6 pounds 4 ounces with Apgars of 8 and 9 2. Intact placenta with central umbilical cord insertion site Pre-Delivery Course: Basilia Oropeza is a 24 year old G2 now P2 status post spontaneous vaginal delivery @ 39.1 wks by LMP c/w 10 wk US. Preg c/b h/o vacuum assisted vaginal delivery for prolonged 2nd stage of labor, obesity. The patient presented to labor and delivery for a scheduled induction of labor. She was being induced due to history of a prolonged second stage of labor with need for a vacuum-assisted vaginal delivery. The goal for delivery at 39 weeks was to decrease risk for complications related to a smaller pelvic outlet. The patient's cervix was 1.5 cm dilated and 50% effaced upon admission. The patient was given 1 dose of Cytotec at approximately 7 PM on 09/03/2024. With this she changed to 3 cm dilation. IV Pitocin was added to the evening to augment labor. The patient continued to make change and was 5 cm by the morning of 09/04/2024. In order to augment the labor process, AROM was performed at 6:53 AM on 09/04/2024. Clear fluid was noted. The patient continued to make slow but steady change and was complete by 1325 on 09/04/2024. Delivery: The patient began pushing at 1336 on 09/04/2024. The patient pushed very well and the descended slowly. Eventually the delivered in the OP position at 1402 on 09/04/2024. A nuchal cord was present and this was delivered prior to delivery of the rest the . The infant's left shoulder was the anterior shoulder and it delivered with ease. The rest of the delivered without complication. The took a breath immediately upon delivery. The infant's mouth and nose were bulb suction by myself and the infant was placed on the mother's chest where the nurses were awaiting to care for her. The cord was clamped after approximately 1 minute by myself and cut by the 's father. Cord blood was obtained. The cord was then drained of blood and traction was placed on umbilical cord. Uterine massage was carried out. The placenta delivered without complication at 1407 on 09/04/2024. The placenta was noted to be intact with a central umbilical cord insertion site. The cervix was inspected and no lacerations were noted. The vaginal wall was inspected and 2 second-degree lacerations were noted. 1 was on the left lower vaginal wall and the other was on the perineal region. This did not extend to the rectum. These were each repaired using 3-0 Vicryl in a running fashion. A rectal exam was done and no sutures were noted in the rectal vault. The patient's epidural provided adequate anesthesia. The patient tolerated the procedure well. Currently both the mother and infant are doing well. History History History 2 Term 2 0 Miscarriages/Ectopic 0 Living Children 2 Past Pregnancies Del. Date GA/Weeks Outcome Route Wt Inf Gender Labor Lgth Comp. Anesthesia Location 07/06/23 40 live - full term Opperative 6 lb 5 oz Male 36 hr regional [facility] 09/04/24 39 live - full term Vaginal 6 lb 4 oz Female 18 hr [facility] Delivery Date: 07/06/23 Last Updated by: Jamar Martinez MD Vacuum-assisted vaginal delivery. Patient with narrow pelvic outlet. No shoulder dystocia. Small second-degree vaginal laceration. True knot in cord. Delivery Date: 09/04/24 Last Updated by: Jamar Martinez MD 2nd degree vaginal laceration, OP delivery, small pelvic outlet A&P Assessment and plan (1) Spontaneous vaginal delivery: PDMP PDMP Reviewed: Not Reviewed Coding Level of Care Code Acute Code for Chg Fwd Diagnoses Spontaneous vaginal delivery O80
[2024-09-04] MEDS: lanolin oint 7 gm 1 APPLIC TOPICAL (16:20)
[2024-09-04] MEDS: benzocaine-menthol 78 gm Canister 1 SPRAY TOPICAL (16:20)
[2024-09-04] MEDS: ibuprofen 800 mg tablet PO ×2 (16:20→20:22)
--- NOTE | 2024-09-04 17:08 | PC.NURSE ---
Pt left leg still fairly numb, not weight bearing. Deandra care performed and chux/pad changed.
--- NOTE | 2024-09-04 18:38 | PC.NURSE ---
Pt had some blood and urine on chux. pt up to bathroom without difficulty. no urge to void. Deandra care performed. Dermoplast to perineum. Pad and gown changed. Pt then ambulated to OB10 for post stay, sitting up in chair at this time.
[2024-09-04] MEDS: docusate sodium 100 mg Capsule PO (20:22)
[2024-09-05] MEDS: HYDROcodone-acetaminophen 5-325 mg Tablet PO (00:19)
[2024-09-05 02:37] LABS: Hematocrit 32.9 % (36-47); Mean Corpuscular HGB Conc 33.1 g/dL (30-55); Mean Corpuscular Hemoglobin 29.3 pg (27-33); Mean Corpuscular Volume 88.4 fl (85-98); Mean Platelet Volume 11.4 fL (7.4-10.4); Platelet Count 161 10^3/cmm (157-399); Red Blood Count 3.72 10^6/uL (3.85-5.65); Red Cell Distribution Width 14.4 % (12.1-15.1); White Blood Count 11.38 10^3/uL (3.29-11.43)
[2024-09-05 04:17] VITALS: BP 118/72; PULSE 62; RESP 15; TEMP 36.5; O2SAT 100
[2024-09-05 06:00] VITALS: BMI 38.5
[2024-09-05] MEDS: PRENATAL VIT NO.130/IRON/FOLIC 1 EACH TABLET PO (08:09)
[2024-09-05] MEDS: ibuprofen 800 mg tablet PO (08:09)
[2024-09-05] MEDS: docusate sodium 100 mg Capsule PO (08:09)
--- NOTE | 2024-09-05 09:07 | P.DS_ITS ---
Discharge Providers Date of Admission: 09/03/24 18:09 Date of Discharge: September 05, 2024 Attending Provider at Admission: Jamar Martinez MD Attending Provider at Discharge: Jamar Martinez MD Primary Care Provider: Jamar Martinez MD Diagnoses at Discharge Discharge Diagnosis (1) Spontaneous vaginal delivery: Status: Acute Other Information Additional DC diagnoses/information: 1. Intrauterine status post spontaneous vaginal delivery at 39.1 weeks gestation 2. History of vacuum-assisted vaginal delivery 3. History of prolonged second stage of labor 4. Obesity 5. Delivery of healthy female weighing 6 pounds 4 ounces with Apgars of 8 and 9 Reason for Visit Reason for Visit: IOL Brief History: Basilia Oropeza is a 24 year old G2 now P2 status post spontaneous vaginal delivery @ 39.1 wks by LMP c/w 10 wk US. Preg c/b h/o vacuum assisted vaginal delivery for prolonged 2nd stage of labor, obesity. The patient presented to labor and delivery for a scheduled induction of labor. She was being induced due to history of a prolonged second stage of labor with need for a vacuum-assisted vaginal delivery. The goal for delivery at 39 weeks was to decrease risk for complications related to a smaller pelvic outlet. The patient's cervix was 1.5 cm dilated and 50% effaced upon admission. Hospital Course Hospital Course The patient was given 1 dose of Cytotec and she made change with this. Eventually IV Pitocin was added followed by AROM at 6:53 AM on 09/04/2024. The patient was complete by 1325 on 09/04/2024. The patient pushed well and the delivered at 1402 on 09/04/2024 in the OP position. The patient had an estimated blood loss of 100 mL. She had 2 second-degree vaginal lacerations that were repaired using 3-0 Vicryl in a running fashion. , the patient has done well. Her bleeding has been well-controlled. Her pain has been under good control as well. She is ambulating, voiding, passing gas and tolerating food by mouth. Routine discharge instructions were discussed. All questions were answered. The patient and her are in agreement with discharge home today. She will plan to follow-up with me in clinic at 6 weeks or sooner if needed. Physical Exam Narrative: General: Alert and oriented x3 Cardiac: Regular rate and rhythm without murmurs Lungs: Clear to auscultation bilaterally without wheezes, crackles or rhonchi Abdomen: Soft, mild tenderness over uterus. The uterus is firm and 2 cm below the umbilicus. Extremities: Trace edema in the bilateral lower extremities Urinary Catheter Management: Mascorro: Cath Placed During This Visit: yes, but has since been removed by the nurse Reason for Continuing Indwelling Catheter: Decision to DC Catheter Urinary Catheter Date of Insertion: 09/04/24 Urinary Catheter Time of Insertion: 02:30 Date Urinary Catheter Removed: 09/04/24 Time Urinary Catheter Discontinued: 13:35 Discharge Data Studies Completed and Pending Laboratory Results WBC 11.38 10^3/uL (3.29-11.43) 09/05/24 02:18 RBC 3.72 10^6/uL (3.85-5.65) L 09/05/24 02:18 Hgb 10.90 g/dL (11.27-16.99) L 09/05/24 02:18 Hct 32.9 % (36-47) L 09/05/24 02:18 MCV 88.4 fl (85-98) 09/05/24 02:18 MCH 29.3 pg (27-33) 09/05/24 02:18 MCHC 33.1 g/dL (30-55) 09/05/24 02:18 RDW 14.4 % (12.1-15.1) 09/05/24 02:18 Plt Count 161 10^3/cmm (157-399) 09/05/24 02:18 MPV 11.4 fL (7.4-10.4) H 09/05/24 02:18 Neut % (Auto) 68.7 % 09/03/24 18:30 Lymph % (Auto) 22.3 % 09/03/24 18:30 [place] % (Auto) 7.6 % 09/03/24 18:30 Eos % (Auto) 0.9 % 09/03/24 18:30 Baso % (Auto) 0.2 % 09/03/24 18:30 Neut # (Auto) 6.46 10^3/uL (1.8-7.7) 09/03/24 18:30 Lymph # (Auto) 2.1 10^3/uL (0.8-4.8) 09/03/24 18:30 [place] # (Auto) 0.7 10^3/uL (0.2-0.9) 09/03/24 18:30 Eos # (Auto) 0.1 10^3/uL (0.0-0.8) 09/03/24 18:30 Baso # (Auto) 0.0 10^3/uL (0.0-0.1) 09/03/24 18:30 Nucleated RBC % (auto) 0 % 09/03/24 18:30 Nucleated RBCs # 0.0 /100WBC 09/03/24 18:30 Blood Type AB Positive 09/03/24 18:30 Rho(D) Type Rh positive 09/03/24 18:30 Antibody Screen Negative 09/03/24 18:30 Vitals Last Vital Signs Temp 97.7 F 09/05/24 04:17 Pulse 62 09/05/24 04:17 Resp 15 09/05/24 04:17 BP 118/72 09/05/24 04:17 Pulse Ox 100 09/05/24 04:17 O2 Del Method Room Air 09/05/24 04:17 Discharge Plan Discharge Patient Disposition: Home Condition: Good Prescriptions: New hydrocodone-acetaminophen 5-325 mg Tablet 1 tab PO Q6H PRN (Reason: Moderate To Severe Pain) Qty: 10 0RF docusate sodium 100 mg Capsule 100 mg PO BID Qty: 30 0RF ferrous sulfate 325 mg (65 mg iron) tablet 325 mg PO DAILY Qty: 30 0RF ibuprofen 800 mg Tablet 800 mg PO TID PRN (Reason: pain) Qty: 60 0RF Vitamin 27 mg iron- 800 mcg Tablet 1 tab PO DAILY Qty: 30 1RF Discharge Orders: Discharge Order (Routine); Ordered 09/05/24 Ordered By: Jamar Martinez Referrals: Jamar Martinez MD [Primary Care Provider] - 6 Weeks Discharge Diet: Regular Discharge Activity: Increase activity as tolerated Patient Instructions: Opioid Safety Activity Restrictions/Additional Instructions: Nothing per vagina for 6 weeks. Showers are recommended instead of baths for the first 6 weeks. Discharge Attestations Time Spent in Discharge Care*: greater than 30 min Quality Metrics Clinical Quality Measures [ No reported AMI, CVA or VTE this stay] Coding Level of Care Code Acute Code for Chg Fwd Diagnoses Spontaneous vaginal delivery O80
[2024-09-05 09:45] VITALS: BP 123/75; PULSE 94; RESP 17; TEMP 36.7; O2SAT 95
--- NOTE | 2024-09-05 10:27 | ANE.PACU2 ---
Inpatient post-anesthesia follow up: Airway intact: Yes Vital signs: Temperature 98.0 F Pulse Rate 94 Respiratory Rate 17 Blood Pressure 123/75 Pulse Oximetry 95 Oxygen Delivery Me thod Room Air Oxygen Flow Rate Fraction of Inspir ed Oxygen Hydration adequate: Yes Nausea and vomiting: No Pain level: 2 Mental status: Baseline Epidural Start/End: Epidural Start Date: 09/04/24 Epidural Start Time: 01:20 Epidural End Date: 09/04/24 Epidural End Time: 16:27
[2024-09-05] MEDS: acetaminophen 325 mg Tablet 650 MG PO (11:10)
[2024-09-05 15:00] VITALS: PULSE 77; RESP 16; TEMP 36.4; O2SAT 99
[2024-09-05 15:15] VITALS: BP 124/82; PULSE 77; RESP 16; TEMP 36.4; O2SAT 99
[2024-09-05 15:55] VITALS: BP 124/82; PULSE 77; RESP 16; TEMP 36.4; O2SAT 99
== END 2024-09-05 15:55 | disposition home or self-care (01) | DRG 807 ==
LOC: OBGYN 18:09
PROVIDERS: Admitting Provider Family Medicine; PCP Family Medicine; Visit Provider Family Medicine
DX: O69.81X0 Labor and delivery complicated by cord around neck, without compression, not applicable or unspecified (principal); Z37.0 Single live birth; O70.1 Second degree perineal laceration during delivery; O99.214 Obesity complicating childbirth; Z3A.39 39 weeks gestation of pregnancy
CPT/HCPCS: 36415; 51702; 59409; 85025; 85027; 86850; 86900; J2405; J2590; J2795; J7120; J7121